=== PATIENT | female | born 1965 ===

== ENCOUNTER 2024-02-29 08:16 | Outpatient (CLI) | payer OTHER, SELFPAY ==
--- NOTE | ~2024-02-29 | MR_ITS ---
MRI of the left shoulder Technique: Axial proton-density fat-sat images, coronal proton density fat-sat and T2 fat-sat images, and sagittal T1-weighted and T2 fat-sat images were acquired. Clinical History: Pain, rotator cuff tear Findings: Probable postoperative change about the AC joint, suggestive of prior subacromial decompres brandy. No subacromial spur evident currently. Coracoclavicular, coracoacromial, and coracohumeral liga ments appear intact. There is mild to moderate supraspinatus and infraspinatus tendinosis, without definite partial or ful l-thickness tear. Subscapularis tendon is intact. Tendon of the long head of the biceps is intact. No labral tear identified. Inferior glenohumeral ligament is intact. There is mild glenohumeral joint degenerative change. No timur int effusion present. No fluid distention of the subacromial/subdeltoid bursa. No muscle atrophy or e tanya. Impression: Rotator cuff tendinosis. No rotator cuff or labral tear seen. Probable postoperative change at the AC joint, as detailed above. Mild degenerative change of the glenohumeral joint. Reviewed, dictated and finalized at location . Impression: Rotator cuff tendinosis. No rotator cuff or labral tear seen. Probable postoperative change at the AC joint, as detailed above. Mild degenerative change of the glenohumeral joint.
== END 2024-02-29 08:17 ==
LOC: GOSHIMG 08:18
PROVIDERS: PCP Family Medicine; Visit Provider Physician Assistant
DX: M19.012 Primary osteoarthritis, left shoulder (principal); M75.32 Calcific tendinitis of left shoulder
CPT/HCPCS: 73221